=== PATIENT | female | born 1960 | race Caucasian/White ===

== ENCOUNTER 2016-08-15 19:58 | Emergency (ER) | payer OTHER ==
--- NOTE | ~2016-08-15 | CR63 ---
[facility] A Service of [facility] & [facility] RADIOLOGY TEXT RESULTS PATIENT: MAGALY LOZADA LOCATION: SED : 60 UNIT #: [id number] AGE: [address]: Bradford Ribeiro MD SEX: F ORDER DR: [id number] [address] [address] [id number] E MR#: [id number] Acc #: [id number] NAME: MAGALY LOZADA : 1960 SEX: F STUDY DATE/TIME: 08/15/2016 20:47 UNIT: SED ROOM: STUDY DESCRIPTION: CR Chest 2 View Attending Physician: Bradford Ribeiro M.D. Ordering Physician: Bradford Ribeiro M.D. Primary Care Physician: Primary Care Physician No MEDICAL IMAGING REPORT This report is preliminary unless electronic signature is present. EXAM PA and lateral chest HISTORY Chest pain today. FINDINGS 2 views of the chest demonstrate the cardiac size and pulmonary vascularity are normal. Mildly tortuous descending thoracic aorta. No airspace infiltrates or effusions. IMPRESSION No acute findings. No active disease. Dictated by... Isaiah Anderson M.D. THIS IS AN ELECTRONICALLY VERIFIED REPORT Isiaah Anderson M.D. at 08/16/2016 2:57 PM DFL/psc TD: 08/16/2016 03:04 JOB #: [id number] MEDICAL IMAGING REPORT Page 1 of 1
[~2016-08-15 19:58] MED LIST: AMLODIPINE BESYL5 MG; ASPIRIN81 M2; Q-PAP325 MG PO
[2016-08-15 20:45] LABS: BASOPHIL# 0.1 X10e3 (0-0.3); BASOPHIL% 0.6 % (0-2.5); EOSINOPHIL# 0.5 X10e3 (0-0.7); EOSINOPHIL% 4.7 % (0.0-7.0); HEMATOCRIT 43.2 % (35.0-45.0); HEMOGLOBIN 14.3 gm/dL (12.0-16.0); LYMPHOCYTE% 29.7 % (17.0-45.0); MEAN CELL VOLUME 88.2 FL (83-96); MEAN CORPUSCULAR HEMOGLOBIN 29.3 PG (28-34); MEAN CORPUSCULAR HGB CONC 33.2 g/dL (30-36); MEAN PLATELET VOLUME 10.6 FL (6.5-11.5); MONOCYTE# 0.6 X10e3 (0-1.0); MONOCYTE% 5.8 % (3.0-12.0); NEUTROPHIL% 59.2 % (40-75); PLATELET COUNT 248 X10e3 (140-420); WHITE BLOOD COUNT 10.1 X10e3 (4.0-10.5)
[2016-08-15 20:49] LABS: DIFF IND NO
[2016-08-15 20:57] LABS: BUN/CREATININE RATIO 16.25; CREATININE SERUM 0.8 mg/dL (0.6-1.4); GLOM FILT RATE Estimated 82.5 mL/min (>60); POTASSIUM 3.6 mmol/L (3.5-5.1)
[2016-08-15 21:00] LABS: POC - CKMB 1.9 ng/mL (0.0-7.9); POC - MYOGLOBIN 83.5 ng/mL (0.0-169.0)
[2016-08-15 21:01] LABS: POC - TROPONIN <0.05 ng/mL (<=0.05)
== END 2016-08-15 22:23 | disposition home or self-care (01) ==
LOC: SED 19:58
PROVIDERS: Emergency Medicine
DX: R07.9 Chest pain, unspecified (principal); F41.9 Anxiety disorder, unspecified; R51 Headache; I10 Essential (primary) hypertension; Z79.82 Long term (current) use of aspirin
CPT/HCPCS: 36415; 71020; 80048; 82553; 83735; 83874; 84484; 85025; 93005; 96372; 99284; J0780; J1200; J1885

== ENCOUNTER 2016-09-15 12:11 | Emergency (ER) | payer OTHER ==
--- NOTE | ~2016-09-15 | CR72 ---
[facility]. [facility] A Service of [facility] & [facility] RADIOLOGY TEXT RESULTS PATIENT: MAGALY LOZADA LOCATION: SED : 60 UNIT #: [id number] AGE: [address]: Azam Farley MD SEX: F ORDER DR: [id number] [address] [address] [id number] E MR#: [id number] Acc #: [id number] NAME: MAGALY LOZADA : 1960 SEX: F STUDY DATE/TIME: 09/15/2016 14:09 UNIT: SED ROOM: STUDY DESCRIPTION: CR Chest Single View Portable Attending Physician: Azam Farley M.D. Ordering Physician: Azam Farley M.D. Primary Care Physician: Primary Care Physician No MEDICAL IMAGING REPORT This report is preliminary unless electronic signature is present. EXAM Portable chest HISTORY Chest pain and shortness of air for 1 week. FINDINGS Cardiac size near the upper limits of normal, accentuated by low lung volumes. Mild right upper thoracic curve. Lungs are clear. IMPRESSION No acute findings. No active disease. Dictated by... Isaiah Anderson M.D. THIS IS AN ELECTRONICALLY VERIFIED REPORT Isaiah Anderson M.D. at 09/15/2016 10:58 PM DFL/heber TD: 09/15/2016 17:00 JOB #: [id number] MEDICAL IMAGING REPORT Page 1 of 1
--- NOTE | ~2016-09-15 | EKG ---
PATIENT: MAGALY LOZADA UNIT #: [id number] Ventricular Rate: 81 BPM Atrial Rate: 81 BPM P-R Interval: 158 ms QRS Duration: 76 ms Q-T Interval: 370 ms QTC Calculation(Bezet): 429 ms P [place]: 55 degrees Calculated R [place]: 11 degrees Calculated T [place]: 43 degrees Diagnosis Line: Normal sinus rhythm Diagnosis Line: Normal ECG Diagnosis Line: When compared with ECG of 15-AUG-2016 20:16, Diagnosis Line: (unconfirmed) Diagnosis Line: Nonspecific T wave abnormality no longer evident Diagnosis Line: in Anterolateral leads Diagnosis Line: Confirmed by VICKIE BRYAN MD ([id number]) on 09/18/2016 Diagnosis Line: 9:35:10 AM INTERPRETING MD: RANDI BAGLEY
--- NOTE | ~2016-09-15 | CT71 ---
[facility] A Service [facility] RADIOLOGY TEXT RESULTS PATIENT: MAGALY LOZADA LOCATION: SED : 60 UNIT #: [id number] AGE: [address]: Azam Farley MD SEX: F ORDER DR: [id number] [address] [address] [id number] E MR#: [id number] Acc #: [id number] NAME: MAGALY LOZADA : 1960 SEX: F STUDY DATE/TIME: 09/15/2016 13:11 UNIT: SED ROOM: STUDY DESCRIPTION: CT Head Wo Contrast Attending Physician: Azam Farley M.D. Ordering Physician: Azam Farley M.D. Primary Care Physician: Primary Care Physician No MEDICAL IMAGING REPORT This report is preliminary unless electronic signature is present. EXAM CT head without IV contrast COMPARISON MRI brain dated April 24, 2016. INDICATIONS 56-year-old female with dizziness and nausea for 1 week. Emesis today. FINDINGS This CT exam was performed with one or more of the following radiation dose reduction techniques: Automatic exposure control, adjustment of mA and/or kV according to patient size, and iterative reconstruction. Mucous retention cysts versus polyps are noted in the sphenoid sinus. Otherwise, the mastoid air cells, middle ears and visualized paranasal sinuses are well aerated. No evidence of acute fracture or suspicious osseous lesion. Calcifications of the cavernous internal carotid arteries. Normal cerebral and cerebellar volume for patient age. No abnormal extraaxial fluid collection or mass effect. No evidence of acute intracranial hemorrhage. Detailed evaluation of the cerebral parenchyma is limited by motion. No convincing evidence of acute ischemia. IMPRESSION 1. Mildly motion limited exam. No acute intracranial abnormality is seen. 2. Mucous retention cysts versus polyps of the sphenoid sinus. 3. Cavernous internal carotid artery calcifications. Dictated by... [facility] A Service [facility] RADIOLOGY TEXT RESULTS PATIENT: MAGALY LOZADA LOCATION: SED : 60 UNIT #: [id number] AGE: [address]: Azam Farley MD SEX: F ORDER DR: Konstantin Phillips M.D. THIS IS AN ELECTRONICALLY VERIFIED REPORT Konstantin Phillips M.D. at 09/19/2016 8:14 AM BLM/psc TD: 09/15/2016 16:21 JOB #: [id number] MEDICAL IMAGING REPORT Page 1 of 1
[2016-09-15 12:45] LABS: BASOPHIL# 0.1 X10e3 (0-0.3); BASOPHIL% 0.7 % (0-2.5); EOSINOPHIL# 0.5 X10e3 (0-0.7); EOSINOPHIL% 7.3 % (0.0-7.0); HEMATOCRIT 42.2 % (35.0-45.0); HEMOGLOBIN 13.7 gm/dL (12.0-16.0); LYMPHOCYTE# 2.5 X10e3 (1.0-3.5); MEAN CORPUSCULAR HGB CONC 32.6 g/dL (30-36); MEAN PLATELET VOLUME 10.2 FL (6.5-11.5); MONOCYTE# 0.4 X10e3 (0-1.0); MONOCYTE% 5.3 % (3.0-12.0); NEUTROPHIL# 3.9 X10e3 (1.5-7.1); NEUTROPHIL% 52.7 % (40-75); PLATELET COUNT 257 X10e3 (140-420); RED BLOOD COUNT 4.74 X10e (3.90-5.30); RED CELL DISTRIBUTION WIDTH 13.8 % (11.0-15.5); WHITE BLOOD COUNT 7.4 X10e3 (4.0-10.5)
[2016-09-15 12:46] LABS: DIFF IND NO
[2016-09-15 12:57] LABS: POC - CKMB 1.4 ng/mL (0.0-7.9); POC - TROPONIN <0.05 ng/mL (<=0.05)
[2016-09-15 13:01] LABS: ALBUMIN SERUM 4.1 g/dL (3.5-5.0); BILIRUBIN, DIRECT 0.1 mg/dL (0.0-0.2); BILIRUBIN,INDIRECT 0.4 mg/dL (0.0-0.9); BILIRUBIN,TOTAL 0.5 mg/dL (0.2-2.0); BUN/CREATININE RATIO 17.5; CALCIUM SERUM 8.6 mg/dL (8.4-10.2); CREATININE SERUM 0.8 mg/dL (0.6-1.4); GLOM FILT RATE Estimated 82.5 mL/min (>60); MAGNESIUM 1.9 mg/dL (1.6-3.0); POTASSIUM 3.7 mmol/L (3.5-5.1); PROTEIN TOTAL SERUM 7.8 g/dL (6.0-8.3)
[2016-09-15 14:43] LABS: POC - CKMB <1.0 ng/mL (0.0-7.9)
[2016-09-15 14:44] LABS: POC - TROPONIN <0.05 ng/mL (<=0.05)
== END 2016-09-15 15:12 | disposition home or self-care (01) ==
LOC: SED 12:11
PROVIDERS: Emergency Medicine
DX: G44.209 Tension-type headache, unspecified, not intractable (principal); F41.9 Anxiety disorder, unspecified; I10 Essential (primary) hypertension; Z98.890 Other specified postprocedural states; Z87.891 Personal history of nicotine dependence
CPT/HCPCS: 36415; 70450; 71010; 80048; 80076; 82553; 83735; 83880; 84484; 85025; 93005; 96361; 96374; 96375; 96376; 99284; J1170; J2060; J2405

== ENCOUNTER 2016-11-23 17:08 | Emergency (ER) | payer OTHER ==
--- NOTE | ~2016-11-23 | EKG ---
PATIENT: MAGALY LOZADA UNIT #: [id number] Ventricular Rate: 91 BPM Atrial Rate: 91 BPM P-R Interval: 162 ms QRS Duration: 78 ms Q-T Interval: 372 ms QTC Calculation(Bezet): 457 ms P [place]: 60 degrees Calculated R [place]: 26 degrees Calculated T [place]: 57 degrees Diagnosis Line: Normal sinus rhythm Diagnosis Line: Normal ECG Diagnosis Line: Diagnosis Line: Confirmed by EFRAIN COLON MD ([id number]) on Diagnosis Line: 11/24/2016 10:07:08 AM INTERPRETING REGGIE GUERRERO
[2016-11-23 18:42] LABS: URINE SOURCE CLEAN CATCH
[2016-11-23 18:46] LABS: URINE APPEARANCE CLEAR; URINE BILIRUBIN NEG (NEG); URINE BLOOD NEG (NEG); URINE COLOR YELLOW; URINE GLUCOSE NEG (NEG); URINE KETONE NEG (NEG); URINE LEUKOCYTE ESTERASE TRACE (NEG); URINE NITRATE NEG (NEG); URINE PH 5.5 (5-8); URINE PROTEIN NEG (NEG); URINE SPECIFIC GRAVITY 1.028 (1.003-1.035); URINE UROBILINOGEN 0.2 MG/DL (NEG)
[2016-11-23 18:49] LABS: CULTURE INDICATED? YES; URINE BACTERIA AUWI 2+ (NEGATIVE); URINE SQUAMOUS EPITHELIAL CELL MOD /[HPF]
[2016-11-23 18:52] LABS: U HYALINE CASTS AUWI 0-2 /[LPF]
== END 2016-11-23 19:55 | disposition left against medical advice (07) ==
LOC: CED 17:08
DX: Z53.21 Procedure and treatment not carried out due to patient leaving prior to being seen by health care provider (principal)
CPT/HCPCS: 81003; 87086; 93005

== ENCOUNTER 2016-12-10 10:01 | Emergency (ER) | payer OTHER ==
[~2016-12-10] VITALS: Ht 160 cm; Wt 70.3 kg
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
== END 2016-12-10 13:40 | disposition home or self-care (01) ==
LOC: CED 10:01 → CFTX 10:01 → CED 11:14
DX: J06.9 Acute upper respiratory infection, unspecified (principal); H57.8 Other specified disorders of eye and adnexa
CPT/HCPCS: 70450; 99283